=== PATIENT | female | born 1955 | race Caucasian/White ===

== ENCOUNTER 2017-11-07 08:15 | Outpatient (CLI) | payer OTHER ==
[2017-11-07] MEDS ORDERED: Iopamidol 370 76% 100 ML VIAL ONE (11:24)
--- NOTE | 2017-11-07 12:01 | CT ---
CT THORAX WITH IV CONTRAST CT ABDOMEN AND PELVIS WITH IV CONTRAST: DATE: 11/07/17. HISTORY: Malignant neoplasm right female breast. History of lumpectomy 3 years ago. FINDINGS: CT THORAX: COMPARISON: CT thorax 08/03/15. There is a 3.7 cm x 2.3 cm hypodense fluid collection seen in the lateral aspect of the right breast. Findings are likely related to lumpectomy site and postsurgical changes. There is no evidence of axillary, mediastinal, or hilar lymphadenopathy. There is minimal atelectasis at the posteromedial right lower lobe with linear atelectasis in the lef t lower lobe. A 5 mm pulmonary nodule was again seen in the left lower lobe which is stable in size compared to the study in 2016 and is overall stable when compared to the study on 06/02/14. No new p ulmonary nodule or mass is visualized. No pleural effusion is seen. Degenerative changes are seen in the spine, no lytic or sclerotic osseous lesions are visualized. Th ere is a Schmorl's node in the inferior end plate of the T11 vertebral body. CT ABDOMEN AND PELVIS: COMPARISON: Noncontrast study on 06/02/14 as well as a prior contrasted study on 05/25/14. Again noted is a left adrenal nodule which was shown to represent adrenal adenoma on prior noncontras t CT images. The liver, spleen, pancreas, right adrenal gland, and decompressed urinary bladder demonstrate a norm al CT appearance. There are tiny subcentimeter too small to characterize hypodense lesion sin each kidney stable from t he study in 2013. Punctate nonobstructing calculus is seen in the inferior pole right kidney. Mild vascular calcifications are seen in the abdominal aorta and iliac arteries. Uterus is not visualized likely related to hysterectomy. There is no evidence of lymphadenopathy. No other interval change from prior exams. No lytic or scl erotic osseous lesions are seen. Degenerative changes are seen in the lower lumbar spine. IMPRESSION: 1. Small fluid collection within the lateral right breast likely related to lumpectomy site and seco ndary to postsurgical changes. 2. No evidence of lymphadenopathy or findings to suggest metastatic disease. 3. Stable pulmonary nodule left lower lobe unchanged in size compared to prior study in 2013. 4. Left adrenal adenoma. 5. Punctate nonobstructing right renal calculus. 6. Stable subcentimeter too small to characterize hypodense lesions in each kidney. 7. Hysterectomy. POS: ARIANNAH
--- NOTE | 2017-11-07 14:07 | NM ---
WHOLE BODY BONE SCAN: DATE: 11/07/17. HISTORY: Malignant neoplasm of overlapping sites right female breast. RADIOPHARMACEUTICAL: 30.3 mCi Technetium 99m labeled MDP, IV. VIEWS OBTAINED: Anterior posterior whole body. FINDINGS: There is increased uptake seen within the bilateral shoulders, left knee, and right foot in a degener ative pattern. There is centric area of uptake seen within the lower left aspect of the cervical spi ne also probably degenerative in origin. No other areas of abnormal osseous uptake of radiotracer ar e seen. There is normal uptake seen in the bilateral kidneys. IMPRESSION: 1. No scintigraphic findings to suggest osseous metastatic disease. 2. Scattered degenerative changes greatest involving the left knee. POS: ARIANNA
== END 2017-11-07 08:16 | disposition home or self-care (01) ==
LOC: CT 08:15
PROVIDERS: ATTEND Internal Medicine Hematology & Oncology
DX: C50.811 Malignant neoplasm of overlapping sites of right female breast (principal); R91.1 Solitary pulmonary nodule; D35.02 Benign neoplasm of left adrenal gland; N20.0 Calculus of kidney; R93.421 Abnormal radiologic findings on diagnostic imaging of right kidney; R93.422 Abnormal radiologic findings on diagnostic imaging of left kidney; Z90.710 Acquired absence of both cervix and uterus; Z98.890 Other specified postprocedural states
CPT/HCPCS: 71260; 74177; 78306; 82565; A9503

== ENCOUNTER 2018-10-29 00:06 | Outpatient (CLI) | payer MEDICARE ==
[2018-10-29 15:00] LABS: Bilirubin Negative (Negative); Blood, Urine Negative (Negative); Clarity CLEAR (Clear); Glucose, Urine (Dipstick) Negative (Negative); Leukocyte Trace (Negative); Nitrite Negative (Negative); Protein, Urine (Dipstick) Negative (Neg-Trace); Specific Gravity, Urine 1.011 (1.002-1.036); Urobilinogen 0.2 mg/dL (0.2-1.0); pH, Urine 5.5 (5.0-9.0)
[2018-10-29 15:03] LABS: #Eosinphils 0.1 thou/uL (0.0-0.7); #Monocytes 0.5 thou/uL (0.11-0.59); #Neutrophils 3.9 thou/uL (1.40-6.50); %Basophils 0.7 % (0.0-1.0); %Eosinophils 1.6 % (0.0-10.0); %Lymphocytes 29.8 % (21.0-51.0); %Monocytes 8.2 % (0.0-10.0); %Neutrophils 59.6 % (42.0-75.0); Hemoglobin 15.2 g/dL (12.0-16.0); Mean Corpuscular HGB CONC 33.5 g/dL (32.0-36.0); Mean Corpuscular Hemoglobin 31.3 pg (27.0-31.0); Mean Corpuscular Volume 93.6 fL (78.0-98.0); Mean Platelet Volume 7.1 fL (7.4-10.4); Platelet Count 240 thou/uL (130-400); RBC Distribution Width 11.5 % (11.5-14.5); Red Blood Cell (RBC) Count 4.85 mill/uL (4.20-5.40); White Blood Cell (WBC) Count 6.5 thou/uL (4.8-10.8)
[2018-10-29 15:04] LABS: Bacteria/HPF 2+ HPF (None Seen); Hyaline Casts/LPF 0-3 HYALINE CAST LPF (0-3 Hyaline); RBC/HPF 0-3 HPF (0-3); Squamous Epithelial 0-3 HPF (0-3); WBC/HPF 0-3 HPF (0-3)
[2018-10-29 15:07] LABS: Prothrombin Time 13.4 SEC (12.0-14.7)
[2018-10-29 15:08] LABS: PTT 28.7 SEC (22.9-36.1)
[2018-10-29 15:22] LABS: Anion Gap 13 mmol/L (10-20); BUN (Urea Nitrogen) 14 mg/dL (9.8-20.1); Calc. Creatinine Clearance 0 mL/min (70-130); Calcium 10.6 mg/dL (7.8-10.44); Carbon Dioxide 28 mmol/L (23-31); Chloride 104 mmol/L (98-107); Estimated GFR-MDRD 81; Glucose 88 mg/dL (80-115); Potassium 3.6 mmol/L (3.5-5.1); Sodium 141 mmol/L (136-145)
== END 2018-10-29 00:07 | disposition home or self-care (01) ==
LOC: LABBT 00:06
PROVIDERS: ATTEND Orthopaedic Surgery
DX: Z01.812 Encounter for preprocedural laboratory examination (principal); M17.12 Unilateral primary osteoarthritis, left knee
CPT/HCPCS: 80048; 81001; 85025; 85610; 85730; 87081

== ENCOUNTER 2019-11-02 10:14 | Outpatient (CLI) | payer MEDICARE ==
--- NOTE | 2019-11-02 10:52 | MMO ---
Bilateral MAMMO Bilat Diag [facility]. CLINICAL HISTORY: Patient is 64 years old and is seen for diagnostic exam. The patient has no family history of breast cancer. The patient has a history of malignant (generic) in the right breast at age 62. The patient has a history of right Lumpectomy in 2018 - malignant. VIEWS: The views performed were: bilateral craniocaudal with tomosynthesis; bilateral mediolateral oblique with tomosynthesis; and bilateral mediolateral with tomosynthesis. FILMS COMPARED: The present examination has been compared to prior imaging studies performed at [facility] on 09/25/2017, 09/29/2017 and 09/15/2018. This study has been interpreted with the assistance of computer-aided detection. MAMMOGRAM FINDINGS: The breasts are heterogeneously dense, which could obscure a lesion on mammography. Finding 1: There are stable benign appearing calcifications seen in both breasts. Finding 2: There are stable post operative changes seen in the right breast. There are no suspicious masses, suspicious calcifications, or new areas of architectural distortion. IMPRESSION: THERE IS NO MAMMOGRAPHIC EVIDENCE OF MALIGNANCY. A ROUTINE FOLLOW-UP MAMMOGRAM IN 1 YEAR IS RECOMMENDED. THE RESULTS OF THIS EXAM WERE SENT TO THE PATIENT. ACR BI-RADS Category 2 - Benign finding MAMMOGRAPHY NOTE: 1. A negative mammogram report should not delay a biopsy if a dominant of clinically suspicious mass is present. 2. Approximately 10% to 15% of breast cancers are not detected by mammography. 3. Adenosis and dense breasts may obscure an underlying neoplasm. Reported by: CROW PEÑA MD Electonically Signed: [id number]
== END 2019-11-02 10:15 | disposition home or self-care (01) ==
LOC: BICMAMMO 10:14
PROVIDERS: ATTEND Internal Medicine Hematology & Oncology
DX: Z08 Encounter for follow-up examination after completed treatment for malignant neoplasm (principal); Z85.3 Personal history of malignant neoplasm of breast
CPT/HCPCS: 77066; G0279

== ENCOUNTER 2020-11-03 10:18 | Outpatient (CLI) | payer MEDICARE | END 2020-11-03 10:19 | disposition home or self-care (01) | LOC: BICMAMMO 10:18 | PROVIDERS: ATTEND Internal Medicine Hematology & Oncology | DX: C50.811 Malignant neoplasm of overlapping sites of right female breast (principal) | CPT/HCPCS: 77066; G0279 ==

== ENCOUNTER 2021-11-05 10:08 | Outpatient (CLI) | payer MEDICARE | END 2021-11-05 10:09 | disposition home or self-care (01) | LOC: BICMAMMO 10:08 | PROVIDERS: ATTEND Internal Medicine Hematology & Oncology | DX: Z08 Encounter for follow-up examination after completed treatment for malignant neoplasm (principal); Z85.3 Personal history of malignant neoplasm of breast | CPT/HCPCS: 77066; G0279 ==